=== PATIENT | female | born 1970 | race Caucasian/White ===

== ENCOUNTER 2016-07-27 14:20 | Emergency (ER) | payer OTHER ==
[2016-07-27 15:34] LABS: BASOPHIL 0.4 % (0-2); EOSINOPHIL 2.2 % (0-5); HCT 38.3 % (37.0-47.0); HGB 13.2 g/dl (12.5-16.0); LYMPHOCYTE 38.3 % (15-48); MCH 29.1 pg (25.0-31.0); MCHC 34.5 g/dL (32.0-36.0); MCV 84.4 fL (78.0-100.0); MONOCYTE 7.6 % (0-12); NEUTROPHIL 51.5 % (41-80); PLT 276 K/uL (150-400); RBC 4.54 M/uL (4.20-5.40); WBC 7.6 K/uL (4.0-10.5)
[2016-07-27 15:35] LABS: BILIRUBIN NEGATIVE (NEGATIVE); BLOOD NEGATIVE Ery/uL (NEGATIVE); CLARITY CLEAR (CLEAR); COLOR YELLOW (YELLOW); GLUCOSE (U) NORMAL (NORMAL); KETONE (U) NEGATIVE (NEGATIVE); LEUKOCYTES 1+ Leu/uL (NEGATIVE); NITRITE NEGATIVE (NEGATIVE); PROTEIN NEGATIVE (NEGATIVE); SPECIFIC GRAVITY <=1.005 (1.001-1.030); UROBILINOGEN 0.2 mg/dL (0.2-1.0); pH 5.5 (5.0-9.0)
[2016-07-27 15:44] LABS: CREATININE 0.8 mg/dL (0.5-1.0); POTASSIUM 3.4 mmol/L (3.5-5.1)
[2016-07-27 15:49] LABS: BACTERIA 1+
== END 2016-07-27 17:50 | disposition home or self-care (01) ==
LOC: FER 14:20
PROVIDERS: Emergency Medicine
DX: R07.9 Chest pain, unspecified (principal); R42 Dizziness and giddiness; R11.0 Nausea; G43.909 Migraine, unspecified, not intractable, without status migrainosus; Z82.49 Family history of ischemic heart disease and other diseases of the circulatory system; Z88.0 Allergy status to penicillin; Z88.1 Allergy status to other antibiotic agents; Z79.899 Other long term (current) drug therapy
CPT/HCPCS: 36415; 71010; 80048; 81001; 84484; 85025; 85379; 93005

== ENCOUNTER 2021-01-21 04:11 | Emergency (ER) | payer OTHER ==
[~2021-01-21 04:11] MED LIST: BENTYL10 MG PO
[2021-01-21 05:07] LABS: BASOPHIL 0.7 % (0-2); EOSINOPHIL 1.7 % (0-5); HCT 38.5 % (37.0-47.0); HGB 12.7 g/dl (12.5-16.0); LYMPHOCYTE 31.6 % (15-48); MCH 29.2 pg (25.0-31.0); MCV 88.5 fL (78.0-100.0); MONOCYTE 6.4 % (0-12); MPV 10.3 fL (6.0-9.5); NEUTROPHIL 59.4 % (41-80); NRBC 0; PLT 261 K/uL (150-400); RBC 4.35 M/uL (4.20-5.40); RDW 12.8 % (11.5-14.0); WBC 8.1 K/uL (4.0-10.5)
[2021-01-21 05:12] LABS: ALBUMIN 3.6 g/dL (3.4-5.0); BILIRUBIN - TOTAL 0.3 mg/dL (0.2-1.0); BUN/CREAT RATIO (CALC) 17.5 RATIO; CREATININE 0.8 mg/dL (0.51-0.95); GLOBULIN (CALCULATION) 2.8 g/dL; POTASSIUM 3.2 mmol/L (3.5-5.1); TOTAL PROTEIN 6.4 g/dL (6.4-8.2)
[2021-01-21] MEDS ORDERED: CARAFATE1 GM PO (06:30)
[2021-01-21] MEDS ORDERED: NEXIUM40 MG PO (06:30)
[2021-01-21] MEDS ORDERED: BENTYL10 MG PO (06:30)
== END 2021-01-21 06:50 | disposition home or self-care (01) ==
LOC: FER 04:11
PROVIDERS: Emergency Medicine
DX: K21.00 Gastro-esophageal reflux disease with esophagitis, without bleeding (principal); R07.89 Other chest pain; Z88.0 Allergy status to penicillin
CPT/HCPCS: 36415; 71045; 80053; 83690; 84484; 85025; 93005; C9113; J1170; J2405

== ENCOUNTER 2021-05-23 15:31 | Emergency (ER) | payer OTHER ==
[~2021-05-23 15:31] MED LIST changes: +CARAFATE1 GM PO; +NEXIUM40 MG PO
[2021-05-23 18:19] LABS: BASOPHIL 0.5 % (0-2); EOSINOPHIL 1.4 % (0-5); HGB 13.3 g/dl (12.5-16.0); LYMPHOCYTE 6.6 % (15-48); MCH 28.4 pg (25.0-31.0); MCHC 33.3 g/dL (32.0-36.0); MCV 85.5 fL (78.0-100.0); MPV 10.3 fL (6.0-9.5); NEUTROPHIL 89.2 % (41-80); NRBC 0; PLT 256 K/uL (150-400); RBC 4.68 M/uL (4.20-5.40); RDW 13.2 % (11.5-14.0); WBC 6.7 K/uL (4.0-10.5)
[2021-05-23 18:33] LABS: BUN/CREAT RATIO (CALC) 27.2 RATIO; CREATININE 0.81 mg/dL (0.51-0.95); POTASSIUM 3.7 mmol/L (3.5-5.1)
[2021-05-23 19:01] LABS: BILIRUBIN NEGATIVE (NEGATIVE); BLOOD NEGATIVE Ery/uL (NEGATIVE); CLARITY CLOUDY (CLEAR); COLOR YELLOW (YELLOW); GLUCOSE (U) NORMAL (NORMAL); LEUKOCYTES NEGATIVE Leu/uL (NEGATIVE); NITRITE NEGATIVE (NEGATIVE); PROTEIN NEGATIVE (NEGATIVE); SPECIFIC GRAVITY >=1.030 (1.001-1.030); UROBILINOGEN 0.2 mg/dL (0.2-1.0)
[2021-05-23] MEDS ORDERED: CIPRO500 MG PO (22:45)
[2021-05-23] MEDS ORDERED: METRONIDAZOLE500 MG PO (22:45)
== END 2021-05-23 23:25 | disposition home or self-care (01) ==
LOC: FER 15:31
PROVIDERS: Nurse Practitioner Family
DX: R19.7 Diarrhea, unspecified (principal); J45.909 Unspecified asthma, uncomplicated; Z88.0 Allergy status to penicillin; Z88.1 Allergy status to other antibiotic agents
CPT/HCPCS: 36415; 80048; 81003; 85025; J2405; J7030; J7120; Q9967